=== PATIENT | male | born 1960 | race African-American/Black ===

== ENCOUNTER 2016-02-08 11:30 | Outpatient (CLI) | payer OTHER | END 2016-02-08 11:31 | disposition home or self-care (01) | DX: N05.9 Unspecified nephritic syndrome with unspecified morphologic changes (principal) ==

== ENCOUNTER 2016-11-27 10:28 | Outpatient (CLI) | payer OTHER ==
[2016-11-27 18:41] LABS: ALBUMIN/GLOBULIN RATIO 1.4 (1.0-2.2); BILIRUBIN,TOTAL 1.4 mg/dL (0.2-1.0); BUN - BLOOD UREA NITROGEN 16 mg/dL (6-20); CALCIUM 9.1 mg/dL (8.5-10.3); CARBON DIOXIDE - CO2 23 mmol/L (21-32); CHLORIDE 106 mmol/L (101-111); CHOL/HDL RATIO 3.9 (<5.0); CHOLESTEROL 213 mg/dL; CREATININE 1.3 mg/dL (0.6-1.2); GFR - MDRD 69 (>89); GLUCOSE 114 mg/dL (70-100); HDL CHOLESTEROL 55 mg/dL; LDL/HDL RATIO 2.6 (<3.6); POTASSIUM 3.6 mmol/L (3.5-5.0); SODIUM 136 mmol/L (135-145); TOTAL PROTEIN 6.9 g/dL (6.7-8.2); TRIGLYCERIDES 84 mg/dL; VLDL CHOLESTEROL 17 mg/dL
== END 2016-11-27 10:29 | disposition home or self-care (01) ==
LOC: LAB.F 10:28
PROVIDERS: ATTEND Nurse Practitioner Family
DX: I12.9 Hypertensive chronic kidney disease with stage 1 through stage 4 chronic kidney disease, or unspecified chronic kidney disease (principal); R94.4 Abnormal results of kidney function studies; R73.01 Impaired fasting glucose; N52.9 Male erectile dysfunction, unspecified; N18.3 Chronic kidney disease, stage 3 (moderate)
CPT/HCPCS: 36415; 80053; 80061; 82043

== ENCOUNTER 2016-12-18 10:30 | Outpatient (CLI) | payer OTHER ==
[2016-12-18 18:05] LABS: BASOPHILS % (AUTO) 0.5 %; EOSINOPHILS # (AUTO) 0.2 10^3/uL (0.0-0.7); HCT - HEMATOCRIT 48.6 % (42.0-52.0); HGB - HEMOGLOBIN 16.3 g/dL (14.0-18.0); LYMPHOCYTES # (AUTO) 1.7 10^3/uL (1.5-3.5); LYMPHOCYTES % (AUTO) 40.4 %; MEAN CORPUSCULAR HEMOGLOBIN 28.7 pg (27.0-31.0); MEAN CORPUSCULAR HGB CONC 33.6 g/dL (32.0-36.0); MEAN CORPUSCULAR VOLUME 85.5 fL (80.0-94.0); MONOCYTES # (AUTO) 0.5 10^3/uL (0.0-1.0); NEUTROPHILS # (AUTO) 1.8 10^3/uL (1.5-6.6); NEUTROPHILS % (AUTO) 43.1 %; NUCLEATED RED BLOOD CELLS AUTO 0.2 /100WBC; RED BLOOD COUNT 5.68 10^6/uL (4.70-6.10); UNCORRECTED WHITE BLOOD COUNT 4.1 x10^3/uL; WHITE BLOOD COUNT 4.1 x10^3/uL (4.8-10.8)
[2016-12-18 18:49] LABS: ALBUMIN/GLOBULIN RATIO 1.4 (1.0-2.2); BILIRUBIN,TOTAL 1.5 mg/dL (0.2-1.0); BUN - BLOOD UREA NITROGEN 14 mg/dL (6-20); CALCIUM 9.4 mg/dL (8.5-10.3); CARBON DIOXIDE - CO2 25 mmol/L (21-32); CHLORIDE 104 mmol/L (101-111); CHOL/HDL RATIO 4.3 (<5.0); CHOLESTEROL 225 mg/dL; CREATININE 1.3 mg/dL (0.6-1.2); GFR - MDRD 69 (>89); GLUCOSE 101 mg/dL (70-100); HDL CHOLESTEROL 52 mg/dL; LDL/HDL RATIO 2.7 (<3.6); POTASSIUM 3.9 mmol/L (3.5-5.0); SODIUM 137 mmol/L (135-145); TOTAL PROTEIN 7.2 g/dL (6.7-8.2); TRIGLYCERIDES 158 mg/dL; VLDL CHOLESTEROL 32 mg/dL
== END 2016-12-18 10:31 | disposition home or self-care (01) ==
LOC: LAB.S 10:30
PROVIDERS: ATTEND Nurse Practitioner Family
DX: I12.9 Hypertensive chronic kidney disease with stage 1 through stage 4 chronic kidney disease, or unspecified chronic kidney disease (principal); R94.4 Abnormal results of kidney function studies; R73.01 Impaired fasting glucose; N52.9 Male erectile dysfunction, unspecified; N18.3 Chronic kidney disease, stage 3 (moderate); D70.9 Neutropenia, unspecified; Z11.59 Encounter for screening for other viral diseases; Z12.5 Encounter for screening for malignant neoplasm of prostate
CPT/HCPCS: 36415; 80053; 80061; 82043; 84153; 85025; 86803

== ENCOUNTER 2017-02-22 12:54 | Outpatient (CLI) | payer OTHER ==
[2017-02-22 17:47] LABS: CALCIUM 9.1 mg/dL (8.5-10.3); CREATININE 1.4 mg/dL (0.6-1.2)
[2017-02-22 17:59] LABS: CREATININE,URINE 210.6 mg/dL; PROTEIN/CREATININE RATIO,URINE 0.1 (<=0.2)
== END 2017-02-22 12:55 | disposition home or self-care (01) ==
LOC: LAB.F 12:54
PROVIDERS: ATTEND Internal Medicine Nephrology
DX: N05.9 Unspecified nephritic syndrome with unspecified morphologic changes (principal); R80.9 Proteinuria, unspecified
CPT/HCPCS: 36415; 80048; 82570; 84156

== ENCOUNTER 2017-06-04 07:54 | Outpatient (CLI) | payer OTHER ==
[2017-06-04 11:51] LABS: CREATININE 1.4 mg/dL (0.6-1.2)
== END 2017-06-04 07:55 | disposition home or self-care (01) ==
LOC: LAB.F 07:54
PROVIDERS: ATTEND Internal Medicine Nephrology
DX: N05.9 Unspecified nephritic syndrome with unspecified morphologic changes (principal)
CPT/HCPCS: 36415; 80048

== ENCOUNTER 2017-08-10 09:53 | Outpatient (CLI) | payer OTHER ==
[2017-08-10 17:34] LABS: CREATININE 1.4 mg/dL (0.6-1.2)
[2017-08-10 17:43] LABS: CREATININE,URINE 217.3 mg/dL; PROTEIN/CREATININE RATIO,URINE 0.1 (<=0.2)
== END 2017-08-10 09:54 | disposition home or self-care (01) ==
LOC: LAB.F 09:53
PROVIDERS: ATTEND Internal Medicine Nephrology
DX: N05.9 Unspecified nephritic syndrome with unspecified morphologic changes (principal); R80.9 Proteinuria, unspecified
CPT/HCPCS: 36415; 80048; 82570; 84156

== ENCOUNTER 2017-10-03 10:17 | Outpatient (CLI) | payer OTHER ==
--- NOTE | 2017-10-03 13:47 | CT Report ---
Reason: ATYPICAL CHEST PAIN, ED CVA HX Procedure Date: 10/03/2017 Accession Number: [id number] / [id number] Procedure: CT - Calcium Score CPT Code: 88625 FULL RESULT: EXAM: CALCIUM SCORE EXAM DATE: 10/03/2017 10:41 AM. HISTORY: Atypical chest pain. COMPARISON: None. TECHNIQUE: Axial sections were obtained through the heart. In accordance with CT protocol optimization, one or more of the following dose reduction techniques were utilized for this exam: automated exposure control, adjustment of mA and/or KV based on patient size, or use of iterative reconstructive technique. FINDINGS: CALCIUM SCORE: The LMA equals 5.89. The LAD equals 1.66. The left circumflex equals 0. The RCA equals 0. The total calcium score is 7.55. The patient is in the 39 percentile rank. This means that 61% of the patients in this age group will have a higher calcium score. LUNGS AND MEDIASTINUM: A tiny bleb is seen in the left upper lobe of insignificant consequence, otherwise, unremarkable. IMPRESSION: Calcium score of 7.55 corresponding to 39th percentile rank. Minimal identifiable plaque detected. Significant obstructive coronary artery disease is unlikely. The patient is advised to adhere to general guidelines on cardiovascular risk reduction. RADIA
== END 2017-10-03 10:18 | disposition home or self-care (01) ==
LOC: DI 10:17
PROVIDERS: ATTEND Nurse Practitioner Family
DX: R07.89 Other chest pain (principal); Z86.73 Personal history of transient ischemic attack (TIA), and cerebral infarction without residual deficits
CPT/HCPCS: 75571

== ENCOUNTER 2017-10-25 14:04 | Outpatient (CLI) | payer OTHER ==
[2017-10-25 17:32] LABS: CALCIUM 9.3 mg/dL (8.5-10.3); CREATININE 1.6 mg/dL (0.6-1.2)
== END 2017-10-25 14:05 | disposition home or self-care (01) ==
LOC: LAB.F 14:04
PROVIDERS: ATTEND Nurse Practitioner Family
DX: N05.9 Unspecified nephritic syndrome with unspecified morphologic changes (principal)
CPT/HCPCS: 36415; 80048

== ENCOUNTER 2017-12-31 08:27 | Outpatient (CLI) | payer OTHER ==
[2017-12-31 10:43] LABS: BASOPHILS % (AUTO) 0.8 %; EOSINOPHILS # (AUTO) 0.2 10^3/uL (0.0-0.7); EOSINOPHILS % (AUTO) 3.9 %; LYMPHOCYTES # (AUTO) 1.9 10^3/uL (1.5-3.5); LYMPHOCYTES % (AUTO) 42.9 %; MEAN CORPUSCULAR HEMOGLOBIN 29.1 pg (27.0-31.0); MEAN CORPUSCULAR HGB CONC 34.4 g/dL (32.0-36.0); MEAN CORPUSCULAR VOLUME 84.5 fL (80.0-94.0); MONOCYTES # (AUTO) 0.4 10^3/uL (0.0-1.0); MONOCYTES % (AUTO) 9.3 %; NEUTROPHILS # (AUTO) 1.9 10^3/uL (1.5-6.6); NEUTROPHILS % (AUTO) 43.1 %; PLT - PLATELET COUNT 192 10^3/uL (130-450); RED BLOOD COUNT 5.49 10^6/uL (4.70-6.10); RED CELL DISTRIBUTION WIDTH 13.5 % (12.0-15.0); WHITE BLOOD COUNT 4.5 x10^3/uL (4.8-10.8)
[2017-12-31 11:11] LABS: ALBUMIN 4.2 g/dL (3.2-5.5); ALBUMIN/GLOBULIN RATIO 1.3 (1.0-2.2); ALKALINE PHOSPHATASE 51 IU/L (42-121); ALT ALANINE AMINOTRANSFERASE 19 IU/L (10-60); AST ASPARTATE AMINOTRANSFERASE 18 IU/L (10-42); BILIRUBIN,TOTAL 1.2 mg/dL (0.2-1.0); BUN - BLOOD UREA NITROGEN 30 mg/dL (6-20); CALCIUM 9.4 mg/dL (8.5-10.3); CARBON DIOXIDE - CO2 29 mmol/L (21-32); CHLORIDE 101 mmol/L (101-111); CHOLESTEROL 249 mg/dL; CREATININE 1.6 mg/dL (0.6-1.2); GFR - MDRD 54 (>89); GLUCOSE 110 mg/dL (70-100); HDL CHOLESTEROL 50 mg/dL; LDL CHOLESTEROL,CALCULATED 171 mg/dL; LDL/HDL RATIO 3.4 (<3.6); SODIUM 136 mmol/L (135-145); TOTAL PROTEIN 7.4 g/dL (6.7-8.2); VLDL CHOLESTEROL 28 mg/dL
[2017-12-31 11:28] LABS: HB2 TOTAL 17.4 g/dL; HEMOGLOBIN A1C 0.7 g/dL; HEMOGLOBIN A1C % 5.8 % (4.6-6.2)
== END 2017-12-31 08:28 | disposition home or self-care (01) ==
LOC: LAB.F 08:27
PROVIDERS: ATTEND Nurse Practitioner Family
DX: R73.01 Impaired fasting glucose (principal); I10 Essential (primary) hypertension; Z12.5 Encounter for screening for malignant neoplasm of prostate; I63.9 Cerebral infarction, unspecified; D70.9 Neutropenia, unspecified; N26.1 Atrophy of kidney (terminal); N05.9 Unspecified nephritic syndrome with unspecified morphologic changes; I50.32 Chronic diastolic (congestive) heart failure
CPT/HCPCS: 36415; 80053; 80061; 83036; 83721; 83880; 84153; 84443; 85025

== ENCOUNTER 2018-02-06 13:55 | Outpatient (CLI) | payer OTHER ==
[2018-02-06 17:55] LABS: CALCIUM 9.4 mg/dL (8.5-10.3); CREATININE 1.6 mg/dL (0.6-1.2)
== END 2018-02-06 13:56 | disposition home or self-care (01) ==
LOC: LAB.F 13:55
PROVIDERS: ATTEND Internal Medicine Nephrology
DX: I50.32 Chronic diastolic (congestive) heart failure (principal); N05.9 Unspecified nephritic syndrome with unspecified morphologic changes
CPT/HCPCS: 36415; 80048; 83880

== ENCOUNTER 2018-03-20 14:51 | Outpatient (CLI) | payer OTHER ==
[2018-03-20 18:25] LABS: CALCIUM 9.5 mg/dL (8.5-10.3); CREATININE 1.4 mg/dL (0.6-1.2); URIC ACID 9.2 mg/dL (2.6-7.2)
== END 2018-03-20 14:52 | disposition home or self-care (01) ==
LOC: LAB.F 14:51
PROVIDERS: ATTEND Nurse Practitioner Family
DX: N18.3 Chronic kidney disease, stage 3 (moderate) (principal); M10.9 Gout, unspecified
CPT/HCPCS: 36415; 80048; 84550

== ENCOUNTER 2018-05-09 08:37 | Outpatient (CLI) | payer OTHER ==
[2018-05-09 12:29] LABS: CALCIUM 9.5 mg/dL (8.5-10.3); URIC ACID 6.5 mg/dL (2.6-7.2)
== END 2018-05-09 08:38 | disposition home or self-care (01) ==
LOC: LAB.F 08:37
PROVIDERS: ATTEND Internal Medicine Nephrology
DX: N05.9 Unspecified nephritic syndrome with unspecified morphologic changes (principal); M10.00 Idiopathic gout, unspecified site
CPT/HCPCS: 36415; 80048; 84550

== ENCOUNTER 2018-07-15 09:26 | Outpatient (CLI) | payer OTHER ==
[2018-07-15 09:56] LABS: CREATININE 1.7 mg/dL (0.6-1.2)
== END 2018-07-15 09:27 | disposition home or self-care (01) ==
LOC: LAB 09:26
PROVIDERS: ATTEND Physician Assistant Medical
DX: B35.1 Tinea unguium (principal)
CPT/HCPCS: 36415; 82565; 84450; 84460; 84520

== ENCOUNTER 2018-09-10 15:13 | Outpatient (CLI) | payer OTHER ==
[2018-09-10 17:36] LABS: CALCIUM 9.6 mg/dL (8.5-10.3); CREATININE 1.7 mg/dL (0.6-1.2)
== END 2018-09-10 15:14 | disposition home or self-care (01) ==
LOC: LAB.S 15:13
PROVIDERS: ATTEND Internal Medicine Nephrology
DX: N05.9 Unspecified nephritic syndrome with unspecified morphologic changes (principal)
CPT/HCPCS: 36415; 80048

== ENCOUNTER 2018-12-02 09:21 | Outpatient (CLI) | payer OTHER ==
[2018-12-02 20:46] LABS: ALBUMIN/GLOBULIN RATIO 1.3 (1.0-2.2); ALKALINE PHOSPHATASE 42 IU/L (42-121); ALT ALANINE AMINOTRANSFERASE 18 IU/L (10-60); AST ASPARTATE AMINOTRANSFERASE 21 IU/L (10-42); BILIRUBIN,TOTAL 1.9 mg/dL (0.2-1.0); BUN - BLOOD UREA NITROGEN 21 mg/dL (6-20); CALCIUM 9.6 mg/dL (8.5-10.3); CARBON DIOXIDE - CO2 28 mmol/L (21-32); CHLORIDE 104 mmol/L (101-111); CHOL/HDL RATIO 4.5 (<5.0); CHOLESTEROL 221 mg/dL; CREATININE 1.7 mg/dL (0.6-1.2); GFR - MDRD 50 (>89); GLUCOSE 108 mg/dL (70-100); HDL CHOLESTEROL 49 mg/dL; LDL CHOLESTEROL,CALCULATED 144 mg/dL; LDL/HDL RATIO 2.9 (<3.6); SODIUM 139 mmol/L (135-145); TOTAL PROTEIN 7.2 g/dL (6.7-8.2); URIC ACID 6.5 mg/dL (2.6-7.2); VLDL CHOLESTEROL 28 mg/dL
== END 2018-12-02 09:22 | disposition home or self-care (01) ==
LOC: LAB.S 09:21
PROVIDERS: ATTEND Internal Medicine
DX: E78.5 Hyperlipidemia, unspecified (principal); Z12.5 Encounter for screening for malignant neoplasm of prostate; M10.9 Gout, unspecified
CPT/HCPCS: 36415; 80053; 80061; 83721; 84153; 84550

== ENCOUNTER 2019-01-23 05:52 | Day surgery (SDC) | payer OTHER ==
[2019-01-23] MEDS ORDERED: LACTATED RINGERS 1,000 ML IV ONE (06:51)
[2019-01-23] MEDS ORDERED: fentaNYL 100 MCG/2 ML VIAL IVP ONE (07:21)
[2019-01-23] MEDS ORDERED: MIDAZOLAM 2 MG/2 ML VIAL IVP ONE (07:21)
[2019-01-23] MEDS ORDERED: GLUCAGON 1 MG/ML VIAL ONE (07:54)
[2019-01-23 08:08] VITALS: BP 129/95
== END 2019-01-23 05:53 | disposition home or self-care (01) ==
LOC: SDS 05:52
PROVIDERS: ATTEND Surgery
PROC: 0DJD8ZZ Inspection of Lower Intestinal Tract, Via Natural or Artificial Opening Endoscopic (ICD-10-PCS; principal; 2019-01-23 07:30)
DX: Z12.11 Encounter for screening for malignant neoplasm of colon (principal); I12.9 Hypertensive chronic kidney disease with stage 1 through stage 4 chronic kidney disease, or unspecified chronic kidney disease; N18.3 Chronic kidney disease, stage 3 (moderate); Z87.891 Personal history of nicotine dependence; Z86.73 Personal history of transient ischemic attack (TIA), and cerebral infarction without residual deficits; E66.9 Obesity, unspecified; Z68.33 Body mass index [BMI] 33.0-33.9, adult
CPT/HCPCS: 45378; J7120

== ENCOUNTER 2019-04-03 14:58 | Outpatient (CLI) | payer OTHER ==
[2019-04-03 17:32] LABS: CALCIUM 9.6 mg/dL (8.5-10.3); CREATININE 1.5 mg/dL (0.6-1.2)
== END 2019-04-03 14:59 | disposition home or self-care (01) ==
LOC: LAB.S 14:58
PROVIDERS: ATTEND Internal Medicine Nephrology
DX: N05.9 Unspecified nephritic syndrome with unspecified morphologic changes (principal)
CPT/HCPCS: 36415; 80048

== ENCOUNTER 2019-06-09 13:01 | Outpatient (CLI) | payer OTHER ==
[2019-06-09 13:22] LABS: CALCIUM 9.2 mg/dL (8.5-10.3); CREATININE 1.4 mg/dL (0.6-1.2)
== END 2019-06-09 13:02 | disposition home or self-care (01) ==
LOC: LAB 13:01
PROVIDERS: ATTEND Internal Medicine Nephrology
DX: N05.9 Unspecified nephritic syndrome with unspecified morphologic changes (principal); N18.9 Chronic kidney disease, unspecified
CPT/HCPCS: 36415; 80048

== ENCOUNTER 2019-08-14 13:57 | Outpatient (CLI) | payer OTHER ==
[2019-08-14 20:12] LABS: CALCIUM 9.4 mg/dL (8.5-10.3); CREATININE 1.5 mg/dL (0.6-1.2)
== END 2019-08-14 13:58 | disposition home or self-care (01) ==
LOC: LAB.S 13:57
PROVIDERS: ATTEND Internal Medicine Nephrology
DX: N05.9 Unspecified nephritic syndrome with unspecified morphologic changes (principal)
CPT/HCPCS: 36415; 80048

== ENCOUNTER 2019-08-21 12:31 | Outpatient (CLI) | payer OTHER ==
--- NOTE | 2019-08-21 13:06 | XRAY Report ---
PROCEDURE: Chest 2 View X-Ray INDICATIONS: ACUTE BRONCHITIS,PULMONARY SARCOIDOSIS TECHNIQUE: 2 view(s) of the chest. COMPARISON: None. FINDINGS: Surgical changes and devices: None. Lungs and pleura: No pleural effusions or pneumothorax. Lungs are clear. Mediastinum: Mediastinal contours are normal. Heart size is normal. Bones and chest wall: No suspicious bony abnormalities. Soft tissues appear unremarkable. IMPRESSION: No lung masses or focal inflammation found, no adenopathy seen. Currently the study appe ars normal for age. Reviewed by: Alirio Storm MD on 08/21/2019 1:04 PM PDT Approved by: Alirio Storm MD on 08/21/2019 1:04 PM PDT Station ID: [id number]
== END 2019-08-21 12:32 | disposition home or self-care (01) ==
LOC: DI 12:31
PROVIDERS: ATTEND Family Medicine
DX: J20.9 Acute bronchitis, unspecified (principal); D86.0 Sarcoidosis of lung
CPT/HCPCS: 71046

== ENCOUNTER 2019-09-04 10:01 | Outpatient (CLI) | payer OTHER ==
[2019-09-04 16:05] LABS: CALCIUM 9.3 mg/dL (8.5-10.3); CREATININE 1.4 mg/dL (0.6-1.2)
== END 2019-09-04 10:02 | disposition home or self-care (01) ==
LOC: LAB.S 10:01
PROVIDERS: ATTEND Internal Medicine Nephrology
DX: N05.9 Unspecified nephritic syndrome with unspecified morphologic changes (principal)
CPT/HCPCS: 36415; 80048

== ENCOUNTER 2019-10-10 08:05 | Outpatient (CLI) | payer OTHER ==
[2019-10-10 15:22] LABS: CALCIUM 9.6 mg/dL (8.5-10.3); CREATININE 1.6 mg/dL (0.6-1.2)
== END 2019-10-10 08:06 | disposition home or self-care (01) ==
LOC: LAB.S 08:05
PROVIDERS: ATTEND Internal Medicine Nephrology
DX: N05.9 Unspecified nephritic syndrome with unspecified morphologic changes (principal)
CPT/HCPCS: 36415; 80048

== ENCOUNTER 2019-11-07 08:02 | Outpatient (CLI) | payer OTHER ==
[2019-11-07 15:35] LABS: CALCIUM 9.5 mg/dL (8.5-10.3); CREATININE 1.3 mg/dL (0.6-1.2)
== END 2019-11-07 08:03 | disposition home or self-care (01) ==
LOC: LAB.S 08:02
PROVIDERS: ATTEND Internal Medicine Nephrology
DX: N05.9 Unspecified nephritic syndrome with unspecified morphologic changes (principal)
CPT/HCPCS: 36415; 80048

== ENCOUNTER 2020-01-19 09:11 | Outpatient (CLI) | payer OTHER ==
[2020-01-19 16:00] LABS: BASOPHILS # (AUTO) 0.1 10^3/uL (0.0-0.1); BASOPHILS % (AUTO) 1.3 %; EOSINOPHILS # (AUTO) 0.2 10^3/uL (0.0-0.7); HGB - HEMOGLOBIN 16.3 g/dL (14.0-18.0); LYMPHOCYTES # (AUTO) 1.6 10^3/uL (1.5-3.5); LYMPHOCYTES % (AUTO) 42.7 %; MEAN CORPUSCULAR HGB CONC 32.9 g/dL (32.0-36.0); MEAN CORPUSCULAR VOLUME 88.3 fL (80.0-94.0); MEAN PLATELET VOLUME 10.8 fL (7.4-11.4); MONOCYTES # (AUTO) 0.4 10^3/uL (0.0-1.0); MONOCYTES % (AUTO) 9.8 %; NEUTROPHILS # (AUTO) 1.6 10^3/uL (1.5-6.6); NEUTROPHILS % (AUTO) 41.2 %; PLT - PLATELET COUNT 182 10^3/uL (130-450); RED BLOOD COUNT 5.62 10^6/uL (4.70-6.10); RED CELL DISTRIBUTION WIDTH 13.2 % (12.0-15.0); WHITE BLOOD COUNT 3.8 x10^3/uL (4.8-10.8)
[2020-01-19 16:15] LABS: CALCIUM 9.6 mg/dL (8.5-10.3); CREATININE 1.4 mg/dL (0.6-1.2)
[2020-01-19 16:26] LABS: CHOL/HDL RATIO 2.5 (<5.0); CHOLESTEROL 156 mg/dL; HDL CHOLESTEROL 62 mg/dL; LDL CHOLESTEROL,CALCULATED 81 mg/dL; LDL/HDL RATIO 1.3 (<3.6); VLDL CHOLESTEROL 13 mg/dL
== END 2020-01-19 09:12 | disposition home or self-care (01) ==
LOC: LAB.S 09:11
PROVIDERS: ATTEND Physician Assistant
DX: I12.9 Hypertensive chronic kidney disease with stage 1 through stage 4 chronic kidney disease, or unspecified chronic kidney disease (principal); R73.01 Impaired fasting glucose; N18.30 Chronic kidney disease, stage 3 unspecified; D55.0 Anemia due to glucose-6-phosphate dehydrogenase [G6PD] deficiency; N05.9 Unspecified nephritic syndrome with unspecified morphologic changes; E78.5 Hyperlipidemia, unspecified
CPT/HCPCS: 36415; 80048; 80061; 83721; 84153; 84403; 84443; 85025

== ENCOUNTER 2020-03-02 07:53 | Outpatient (CLI) | payer OTHER ==
[2020-03-02 15:48] LABS: CALCIUM 9.8 mg/dL (8.5-10.3); CREATININE 1.6 mg/dL (0.6-1.2)
== END 2020-03-02 07:54 | disposition home or self-care (01) ==
LOC: LAB.S 07:53
PROVIDERS: ATTEND Internal Medicine Nephrology
DX: N05.9 Unspecified nephritic syndrome with unspecified morphologic changes (principal)
CPT/HCPCS: 36415; 80048

== ENCOUNTER 2020-05-17 14:42 | Outpatient (CLI) | payer OTHER ==
[2020-05-17 20:19] LABS: CALCIUM 9.4 mg/dL (8.5-10.3); CREATININE 1.3 mg/dL (0.6-1.2); POTASSIUM 3.5 mmol/L (3.5-5.0)
== END 2020-05-17 14:43 | disposition home or self-care (01) ==
LOC: LAB.S 14:42
PROVIDERS: ATTEND Internal Medicine Nephrology
DX: N05.9 Unspecified nephritic syndrome with unspecified morphologic changes (principal)
CPT/HCPCS: 36415; 80048

== ENCOUNTER 2020-07-09 07:39 | Outpatient (CLI) | payer OTHER | END 2020-07-09 07:40 | disposition home or self-care (01) | LOC: LAB.S 07:39 | PROVIDERS: ATTEND Physician Assistant | DX: R53.83 Other fatigue (principal) | CPT/HCPCS: 36415; 84403 ==

== ENCOUNTER 2020-10-12 07:55 | Outpatient (CLI) | payer OTHER ==
[2020-10-12 15:06] LABS: CALCIUM 9.5 mg/dL (8.5-10.3); CREATININE 1.4 mg/dL (0.6-1.2); POTASSIUM 4.1 mmol/L (3.5-5.0)
== END 2020-10-12 07:56 | disposition home or self-care (01) ==
LOC: LAB.S 07:55
PROVIDERS: ATTEND Internal Medicine Nephrology
DX: N05.9 Unspecified nephritic syndrome with unspecified morphologic changes (principal)
CPT/HCPCS: 36415; 80048

== ENCOUNTER 2021-01-17 13:56 | Outpatient (CLI) | payer OTHER ==
[2021-01-17 20:33] LABS: CALCIUM 9.2 mg/dL (8.5-10.3); CREATININE 1.4 mg/dL (0.6-1.2); POTASSIUM 3.9 mmol/L (3.5-5.0)
== END 2021-01-17 13:57 | disposition home or self-care (01) ==
LOC: LAB.S 13:56
PROVIDERS: ATTEND Internal Medicine Nephrology
DX: N05.9 Unspecified nephritic syndrome with unspecified morphologic changes (principal)
CPT/HCPCS: 36415; 80048

== ENCOUNTER 2021-04-25 11:38 | Outpatient (CLI) | payer OTHER ==
[2021-04-25 15:14] LABS: EOSINOPHILS # (AUTO) 0.3 10^3/uL (0.0-0.7); EOSINOPHILS % (AUTO) 8.6 %; HCT - HEMATOCRIT 50.5 % (42.0-52.0); HGB - HEMOGLOBIN 16.9 g/dL (14.0-18.0); LYMPHOCYTES # (AUTO) 1.6 10^3/uL (1.5-3.5); LYMPHOCYTES % (AUTO) 41.9 %; MEAN CORPUSCULAR HEMOGLOBIN 29.1 pg (27.0-31.0); MEAN CORPUSCULAR HGB CONC 33.5 g/dL (32.0-36.0); MEAN CORPUSCULAR VOLUME 87.1 fL (80.0-94.0); MEAN PLATELET VOLUME 10.9 fL (7.4-11.4); MONOCYTES # (AUTO) 0.3 10^3/uL (0.0-1.0); MONOCYTES % (AUTO) 8.9 %; NEUTROPHILS # (AUTO) 1.5 10^3/uL (1.5-6.6); NEUTROPHILS % (AUTO) 39.3 %; PLT - PLATELET COUNT 210 10^3/uL (130-450); RED CELL DISTRIBUTION WIDTH 13.1 % (12.0-15.0); WHITE BLOOD COUNT 3.8 x10^3/uL (4.8-10.8)
[2021-04-25 15:27] LABS: ALBUMIN 4.5 g/dL (3.2-5.5); ALBUMIN/GLOBULIN RATIO 1.3 (1.0-2.2); ALKALINE PHOSPHATASE 61 IU/L (42-121); ALT ALANINE AMINOTRANSFERASE 27 IU/L (10-60); AST ASPARTATE AMINOTRANSFERASE 26 IU/L (10-42); BILIRUBIN,TOTAL 1.1 mg/dL (0.2-1.0); BUN - BLOOD UREA NITROGEN 22 mg/dL (6-20); CALCIUM 9.8 mg/dL (8.5-10.3); CARBON DIOXIDE - CO2 27 mmol/L (21-32); CHLORIDE 102 mmol/L (101-111); CHOL/HDL RATIO 3.1 (<5.0); CHOLESTEROL 208 mg/dL; CREATININE 1.4 mg/dL (0.6-1.2); GFR - MDRD 63 (>89); GLUCOSE 110 mg/dL (70-100); HDL CHOLESTEROL 68 mg/dL; LDL CHOLESTEROL,CALCULATED 123 mg/dL; LDL/HDL RATIO 1.8 (<3.6); POTASSIUM 4.2 mmol/L (3.5-5.0); SODIUM 138 mmol/L (135-145); TOTAL PROTEIN 7.9 g/dL (6.7-8.2); TRIGLYCERIDES 86 mg/dL; VLDL CHOLESTEROL 17 mg/dL
[2021-04-25 20:48] LABS: ESTIMATED AVERAGE GLUCOSE 123 mg/dL (70-100); HEMOGLOBIN A1c% 5.9 % (4.27-6.07)
== END 2021-04-25 11:39 | disposition home or self-care (01) ==
LOC: LAB.S 11:38
PROVIDERS: ATTEND Internal Medicine
DX: I10 Essential (primary) hypertension (principal); R73.9 Hyperglycemia, unspecified; Z12.5 Encounter for screening for malignant neoplasm of prostate
CPT/HCPCS: 36415; 80053; 80061; 83036; 83721; 84153; 85025

== ENCOUNTER 2021-07-06 15:35 | Outpatient (CLI) | payer OTHER ==
[2021-07-06 19:57] LABS: HCT - HEMATOCRIT 49.3 % (42.0-52.0); HGB - HEMOGLOBIN 15.8 g/dL (14.0-18.0); MEAN CORPUSCULAR HEMOGLOBIN 28.9 pg (27.0-31.0); MEAN CORPUSCULAR VOLUME 90.1 fL (80.0-94.0); MEAN PLATELET VOLUME 10.9 fL (7.4-11.4); RED BLOOD COUNT 5.47 10^6/uL (4.70-6.10); RED CELL DISTRIBUTION WIDTH 13.5 % (12.0-15.0); WHITE BLOOD COUNT 4.9 x10^3/uL (4.8-10.8)
[2021-07-06 20:13] LABS: CALCIUM 9.8 mg/dL (8.5-10.3); CREATININE 1.4 mg/dL (0.6-1.2); URIC ACID 5.1 mg/dL (2.6-7.2)
== END 2021-07-06 15:36 | disposition home or self-care (01) ==
LOC: LAB.S 15:35
PROVIDERS: ATTEND Internal Medicine Nephrology
DX: N18.30 Chronic kidney disease, stage 3 unspecified (principal); D63.1 Anemia in chronic kidney disease; M10.9 Gout, unspecified
CPT/HCPCS: 36415; 80048; 84550; 85027

== ENCOUNTER 2021-11-24 09:21 | Outpatient (CLI) | payer OTHER | END 2021-11-24 09:22 | disposition home or self-care (01) | LOC: RT 09:21 | PROVIDERS: ATTEND Registered Nurse | DX: J40 Bronchitis, not specified as acute or chronic (principal); D86.0 Sarcoidosis of lung; R06.00 Dyspnea, unspecified | CPT/HCPCS: 94060; 94729 ==

== ENCOUNTER 2022-04-27 11:54 | Outpatient (CLI) | payer OTHER ==
[2022-04-27 14:29] LABS: BASOPHILS % (AUTO) 1.1 %; EOSINOPHILS # (AUTO) 0.2 10^3/uL (0.0-0.7); EOSINOPHILS % (AUTO) 5.8 %; HCT - HEMATOCRIT 51.9 % (42.0-52.0); HGB - HEMOGLOBIN 16.9 g/dL (14.0-18.0); LYMPHOCYTES # (AUTO) 1.4 10^3/uL (1.5-3.5); LYMPHOCYTES % (AUTO) 38.9 %; MEAN CORPUSCULAR HEMOGLOBIN 28.5 pg (27.0-31.0); MEAN CORPUSCULAR HGB CONC 32.6 g/dL (32.0-36.0); MEAN CORPUSCULAR VOLUME 87.4 fL (80.0-94.0); MEAN PLATELET VOLUME 11.2 fL (7.4-11.4); MONOCYTES # (AUTO) 0.3 10^3/uL (0.0-1.0); MONOCYTES % (AUTO) 9.4 %; NEUTROPHILS # (AUTO) 1.6 10^3/uL (1.5-6.6); NEUTROPHILS % (AUTO) 44.5 %; PLT - PLATELET COUNT 183 10^3/uL (130-450); RED BLOOD COUNT 5.94 10^6/uL (4.70-6.10); RED CELL DISTRIBUTION WIDTH 13.2 % (12.0-15.0); WHITE BLOOD COUNT 3.6 x10^3/uL (4.8-10.8)
[2022-04-27 15:08] LABS: THYROID STIMULATING HORMONE 2.34 uIU/mL (0.34-5.60)
[2022-04-27 15:10] LABS: ALBUMIN 4.2 g/dL (3.2-5.5); ALBUMIN/GLOBULIN RATIO 1.4 (1.0-2.2); ALKALINE PHOSPHATASE 67 IU/L (42-121); ALT ALANINE AMINOTRANSFERASE 23 IU/L (10-60); AST ASPARTATE AMINOTRANSFERASE 25 IU/L (10-42); BILIRUBIN,TOTAL 1.5 mg/dL (0.2-1.0); BUN - BLOOD UREA NITROGEN 16 mg/dL (6-20); CALCIUM 9.5 mg/dL (8.5-10.3); CARBON DIOXIDE - CO2 28 mmol/L (21-32); CHLORIDE 105 mmol/L (101-111); CHOL/HDL RATIO 2.5 (<5.0); CHOLESTEROL 162 mg/dL; CREATININE 1.3 mg/dL (0.6-1.2); GFR - MDRD 68 (>89); GLUCOSE 113 mg/dL (70-100); HDL CHOLESTEROL 64 mg/dL; LDL CHOLESTEROL,CALCULATED 83 mg/dL; LDL/HDL RATIO 1.3 (<3.6); POTASSIUM 4.3 mmol/L (3.5-5.0); SODIUM 138 mmol/L (135-145); TOTAL PROTEIN 7.2 g/dL (6.7-8.2); TRIGLYCERIDES 75 mg/dL; VLDL CHOLESTEROL 15 mg/dL
== END 2022-04-27 11:55 | disposition home or self-care (01) ==
LOC: LAB.S 11:54
PROVIDERS: ATTEND Registered Nurse
DX: I10 Essential (primary) hypertension (principal); E78.5 Hyperlipidemia, unspecified; R73.01 Impaired fasting glucose; Z12.5 Encounter for screening for malignant neoplasm of prostate
CPT/HCPCS: 36415; 80053; 80061; 83721; 84153; 84443; 85025

== ENCOUNTER 2023-05-22 10:39 | Outpatient (CLI) | payer OTHER ==
[2023-05-22 14:47] LABS: BASOPHILS # (AUTO) 0.1 10^3/uL (0.0-0.1); BASOPHILS % (AUTO) 1.1 %; EOSINOPHILS # (AUTO) 0.3 10^3/uL (0.0-0.7); EOSINOPHILS % (AUTO) 6.2 %; HCT - HEMATOCRIT 48.4 % (42.0-52.0); HGB - HEMOGLOBIN 15.1 g/dL (14.0-18.0); LYMPHOCYTES # (AUTO) 1.1 10^3/uL (1.5-3.5); LYMPHOCYTES % (AUTO) 25.7 %; MEAN CORPUSCULAR HEMOGLOBIN 26.9 pg (27.0-31.0); MEAN CORPUSCULAR HGB CONC 31.2 g/dL (32.0-36.0); MEAN CORPUSCULAR VOLUME 86.3 fL (80.0-94.0); MEAN PLATELET VOLUME 10.5 fL (7.4-11.4); MONOCYTES # (AUTO) 0.5 10^3/uL (0.0-1.0); MONOCYTES % (AUTO) 10.6 %; NEUTROPHILS # (AUTO) 2.5 10^3/uL (1.5-6.6); NEUTROPHILS % (AUTO) 56.4 %; PLT - PLATELET COUNT 206 10^3/uL (130-450); RED BLOOD COUNT 5.61 10^6/uL (4.70-6.10); RED CELL DISTRIBUTION WIDTH 13.2 % (12.0-15.0); WHITE BLOOD COUNT 4.4 x10^3/uL (4.8-10.8)
[2023-05-22 15:25] LABS: THYROID STIMULATING HORMONE 1.97 uIU/mL (0.34-5.60)
[2023-05-22 15:55] LABS: ALBUMIN 4.1 g/dL (3.2-5.5); ALBUMIN/GLOBULIN RATIO 1.6 (1.0-2.2); ALKALINE PHOSPHATASE 64 IU/L (42-121); ALT ALANINE AMINOTRANSFERASE 19 IU/L (10-60); AST ASPARTATE AMINOTRANSFERASE 20 IU/L (10-42); BILIRUBIN,TOTAL 1.4 mg/dL (0.2-1.0); BUN - BLOOD UREA NITROGEN 21 mg/dL (6-20); CALCIUM 9.8 mg/dL (8.5-10.3); CARBON DIOXIDE - CO2 28 mmol/L (21-32); CHLORIDE 105 mmol/L (101-111); CHOL/HDL RATIO 2.3 (<5.0); CHOLESTEROL 153 mg/dL; CREATININE 1.5 mg/dL (0.6-1.3); GFR - MDRD 57 (>89); GLUCOSE 101 mg/dL (74-104); HDL CHOLESTEROL 66 mg/dL; LDL CHOLESTEROL,CALCULATED 71 mg/dL; LDL/HDL RATIO 1.1 (<3.6); SODIUM 138 mmol/L (135-145); TOTAL PROTEIN 6.7 g/dL (6.4-8.9); TRIGLYCERIDES 81 mg/dL (48-352); VLDL CHOLESTEROL 16 mg/dL
[2023-05-22 16:27] LABS: MICROALBUMIN,URINE > 225.0 mg/dL
[2023-05-22 20:11] LABS: ESTIMATED AVERAGE GLUCOSE 114 mg/dL (70-100); HEMOGLOBIN A1c% 5.6 % (4.27-6.07)
[2023-05-25 00:08] LABS: HCV AB Non Reactive (Non Reactive)
== END 2023-05-22 10:40 | disposition home or self-care (01) ==
LOC: LAB.S 10:39
PROVIDERS: ATTEND Registered Nurse
DX: R73.01 Impaired fasting glucose (principal); Z11.59 Encounter for screening for other viral diseases; Z11.1 Encounter for screening for respiratory tuberculosis; Z13.228 Encounter for screening for other metabolic disorders; Z13.220 Encounter for screening for lipoid disorders; Z13.29 Encounter for screening for other suspected endocrine disorder; Z13.0 Encounter for screening for diseases of the blood and blood-forming organs and certain disorders involving the immune mechanism
CPT/HCPCS: 36415; 80050; 80061; 81599; 82043; 82570; 83036; 83721; 86803

== ENCOUNTER 2023-06-26 07:52 | Outpatient (CLI) | payer OTHER | END 2023-06-26 07:53 | disposition home or self-care (01) | LOC: LAB.S 07:52 | PROVIDERS: ATTEND Urology | DX: N40.0 Benign prostatic hyperplasia without lower urinary tract symptoms (principal); N52.9 Male erectile dysfunction, unspecified | CPT/HCPCS: 36415; 84153; 84402; 84403 ==

== ENCOUNTER 2023-08-24 09:03 | Outpatient (CLI) | payer OTHER ==
[2023-08-24 09:35] LABS: CREATININE 1.3 mg/dL (0.6-1.3)
[2023-08-24] MEDS ORDERED: GADOTERATE MEGLUMINE 5 MMOL/10 ML VIAL ONE (10:23)
[2023-08-24] MEDS ORDERED: GADOTERATE MEGLUMINE 10 MMOL/20 ML VIAL ONE (10:23)
[2023-08-24] MEDS: GADOTERATE MEGLUMINE 10 MMOL/20 ML VIAL IVP ONE (11:28)
--- NOTE | 2023-08-24 11:53 | MRI Report ---
PROCEDURE: Pelvis W/WO INDICATIONS: ELEVATED PROSTATE SPECIFIC ANTIGEN CONTRAST: CLARISCAN 21.8 ML TECHNIQUE: Coronal ultra fast SE, axial T1 FSE with fat saturation, 3-plane nonbreath-hold T2 FSE. After the ad ministration of contrast, dynamic axial, delayed axial and coronal ultra fast GE or 2-D spoiled GE wi th fat saturation through the pelvis. Optional diffusion weighted imaging and ADC may be performed. COMPARISON: None. FINDINGS: Image quality: Diffusion weighted and dynamic contrast enhanced images are diagnostic. Prostate: Gland size is appropriate by 4.3 x 4.3 cm. cm; ellipsoid gland volume is 46 mL. PSA density is 0.096 Transitional zone heterogenous nodules are present, either well encapsulated or mostly encapsulated, compatible with PI-RADS 1 or 2 likely BPH nodules. This is the predominant finding. Mildly T2 hypointense heterogenous striated appearance of the peripheral zone is commonly seen with c urrent or prior prostatitis, PI-RADS 2. These findings can obscure small cancers. Possible lesion in the right apex posterior medial peripheral zone measuring 8 x 9 x 7 mm (5/18, 6/18 ). There is subtle low signal on ADC. DWI score is 3. T2 score 3. DCE negative. PI RADS 3. The seminal vesicles appear clear Genitourinary system: Mildly trabeculated bladder may be from chronic obstruction. The bladder is un derdistended which limits evaluation Bowel and peritoneum: No small bowel obstruction. No pathologic ascites Nodes and vessels: No pathologic lymph nodes by size criteria. Soft tissues: No suspicious pelvic wall abnormality. Small fat-containing left periumbilical hernia Bones: No suspicious enhancing osseous finding. IMPRESSION: No high suspicion PI RADS 4 or 5 finding. The predominant finding on this MRI are BPH and possible se quelae of prostatitis. PI RADS 3 lesion in the right apex peripheral zone. Differential includes a fo matthew area of prostatitis. Reviewed by: Alvarado Lemus MD on 08/24/2023 11:52 AM PDT Approved by: Alvarado Lemus MD on 08/24/2023 11:52 AM PDT Station ID: [id number]
== END 2023-08-24 09:04 | disposition home or self-care (01) ==
LOC: LAB 09:03
PROVIDERS: ATTEND Urology
DX: R97.20 Elevated prostate specific antigen [PSA] (principal); N40.0 Benign prostatic hyperplasia without lower urinary tract symptoms
CPT/HCPCS: 36415; 82565